=== PATIENT | female | born 1990 ===

== ENCOUNTER 2025-06-12 06:00 | Day surgery (SDC) | payer OTHER ==
[2025-06-04 11:16] LABS: BASO % 0.8 % (0.1-1.2); EOS # 0.03 (0.04-0.54); EOS % 0.5 % (0.7-7.0); LYMPH # 1.97 (1.18-3.74); LYMPH % 31.8 % (19.3-53.1); MEAN PLATELET VOLUME 9.20 fl (9.4-12.4); MONO # 0.31 (0.24-0.82); MONO % 5.0 % (4.7-12.5); NEUT # 3.83 (1.56-6.13); NEUT % 61.7 % (34.0-71.1); RED CELL DISTRIBUTION WIDTH 11.9 % (11.6-14.4)
[2025-06-04 11:19] LABS: URINE APPEARANCE Clear; URINE BILIRRUBIN Negative (NEGATIVE); URINE BLOOD Negative; URINE COLOR Yellow; URINE GLUCOSE Negative (NEGATIVE); URINE KETONE Trace (NEGATIVE); URINE LEUKOCYTE Negative; URINE NITRATE Negative; URINE PROTEIN Negative (NEGATIVE); URINE UROBILINOGEN 0.2 E.U./dl
[2025-06-04 11:26] LABS: URINE BACTERIA 274.4 uL (0.0-1933); URINE EPITHELIAL CELLS 28.2 uL (0.0-38.8); URINE RBC 3.3 uL (0.0-20.8); URINE WBC 3.8 uL (0.0-23.2)
[2025-06-04 11:38] VITALS: BP 143/86
[2025-06-04 11:40] LABS: URINE CAST 0.00 uL (0.0-1.40)
[2025-06-04 11:51] LABS: INR 1.03
[2025-06-04 12:26] LABS: BUN CREA RATIO 27.0 (7.0-25.0); CREATININE SERUM 0.49 mg/dL (0.55-1.02); GFR 142.1; GLUCOSE FASTING 87.0 mg/dL (65-100); OSMOLALITY SERUM 279.0 MOSM/KG (275-295)
[2025-06-12] MEDS ORDERED: LIDOCAINE HCL 1%/EPINEPHRINE 20ML VIAL IJ ONE (06:56)
[2025-06-12] MEDS ORDERED: POVIDONE-IODINE 118 ML BOTT TOP ONE (06:56)
[2025-06-12] MEDS ORDERED: CHLORHEXIDINE GLUCONATE 120 ML BOTTLE TOP ONE (07:10)
[2025-06-12] MEDS ORDERED: DEXAMETHASONE SODIUM PHOSPHATE 4 MG/ML VIAL ONE (07:46)
[2025-06-12] MEDS ORDERED: CEFAZOLIN SODIUM 1,000 MG VIAL IV SCH (08:15)
[2025-06-12] MEDS ORDERED: CIPROFLOXACIN2.5 ML OTIC (09:26)
== END 2025-06-12 10:15 | disposition home or self-care (01) ==
LOC: CIR.AMB 06:00
PROVIDERS: ATTEND Otolaryngology Otology & Neurotology
DX: H90.12 Conductive hearing loss, unilateral, left ear, with unrestricted hearing on the contralateral side (principal); H72.02 Central perforation of tympanic membrane, left ear